=== PATIENT | female | born 1990 | race Caucasian/White ===

== ENCOUNTER 2017-05-04 09:35 | Emergency (ER) | END 2017-05-04 11:29 | disposition home or self-care (01) ==

== ENCOUNTER 2018-09-28 10:08 | Emergency (ER) | payer OTHER ==
[~2018-09-28] VITALS: Ht 157.5 cm; Wt 58.3 kg
[~2018-09-28 10:08] MED LIST: NAPR-985 PO
[2018-09-28 10:12] VITALS: Ht 157.5 cm; Wt 58.3 kg
[2018-09-28] MEDS ORDERED: SOD CHLORIDE 0.9% 1,000 ML IV STA (10:49)
[2018-09-28] MEDS ORDERED: ONDANSETRON 4 MG INJ IV STA ×2 (10:49→13:36)
[2018-09-28] MEDS ORDERED: morphine 4 MG/ML VIAL IV STA (10:49)
--- NOTE | 2018-09-28 11:01 | ERD ---
ER Documentation Chief Complaint Chief Complaint ABD PAIN RADIATING TO BACK, PT STATES SHE IS , UNK GESTATIONAL AGE HPI 28-year-old G2, P1 female in her seventh week of with an LMP in mid July with history of right-sided kidney stone presents with complaint of diffuse abdominal pain radiating to the back since this morning. In addition states she has had 2 episodes of vomiting. Denies any treatments. States that her pain is currently 10 out of 10. Vomitus is described as yellow. She denies any vaginal bleeding, dysuria, hematuria, fevers, chills, diarrhea, constipation, shortness of breath, chest pain, wheezing. ROS All systems reviewed and are negative except as per history of present illness. Medications Home Meds Active Scripts Metoclopramide* (Reglan*) 10 Mg Tablet, 10 MG PO Q6 PRN for NAUSEA AND/OR VOMITING, #10 TAB Prov:MARCIAL PAINTER 09/28/18 Discontinued Scripts Hydrocodone/Acetaminophen ([place] 5-325 Tablet) 1 Each Tablet, 1-2 TAB PO Q6H PRN for PAIN, #15 TAB Prov:MARCIAL PAINTER 09/28/18 Naproxen* (Naprosyn*) 500 Mg Tablet, 500 MG PO BID PRN for PAIN AND/OR INFLAMMATION, #15 TAB Prov:MARCIAL ALEXANDER PA-C 05/04/17 Allergies Allergies: Coded Allergies: No Known Allergy (Unverified , 09/29/18) PMhx/Soc Hx Alcohol Use: No Hx Substance Use: No Hx Tobacco Use: No FmHx Family History: No diabetes, No coronary disease, No other Physical Exam Vitals Vital Signs Date Temp Pulse Resp B/P (MAP) Pulse Ox O2 O2 Flow FiO2 Time Delivery Rate 09/28/18 98.2 70 18 108/59 99 Room Air 14:44 (75) 09/28/18 98.2 88 16 118/60 99 10:12 (79) Physical Exam Const: No acute distress Head: Atraumatic Eyes: Normal Conjunctiva ENT: Normal External Ears, Nose and Mouth. Neck: Full range of motion. No meningismus. Resp: Clear to auscultation bilaterally Cardio: Regular rate and rhythm, no murmurs Abd: Abdomen diffusely tender to palpation with guarding. Skin: No petechiae or rashes Back: No midline or flank tenderness Ext: No cyanosis, or edema Neur: Awake and alert Psych: Normal Mood and Affect Result Diagram: 09/28/18 1101 09/28/18 1101 Results 24 hrs Laboratory Tests Test 09/28/18 11:01 White Blood Count 12.9 10^3/ul Red Blood Count 4.62 10^6/ul Hemoglobin 14.1 g/dl Hematocrit 40.8 % Mean Corpuscular Volume 88.3 fl Mean Corpuscular Hemoglobin 30.5 pg Mean Corpuscular Hemoglobin Concent 34.6 g/dl Red Cell Distribution Width 12.0 % Platelet Count 323 10^3/UL Mean Platelet Volume 10.0 fl Immature Granulocytes % 0.200 % Neutrophils % 81.8 % Lymphocytes % 11.8 % Monocytes % 5.3 % Eosinophils % 0.4 % Basophils % 0.5 % Nucleated Red Blood Cells % 0.0 /100WBC Immature Granulocytes # 0.030 10^3/ul Neutrophils # 10.6 10^3/ul Lymphocytes # 1.5 10^3/ul Monocytes # 0.7 10^3/ul Eosinophils # 0.1 10^3/ul Basophils # 0.1 10^3/ul Nucleated Red Blood Cells # 0.0 10^3/ul Urine Color RACHAEL Urine Clarity TURBID Urine pH 8.0 Urine Specific [place] 1.019 Urine Ketones TRACE mg/dL Urine Nitrite NEGATIVE mg/dL Urine Bilirubin NEGATIVE mg/dL Urine Urobilinogen NEGATIVE mg/dL Urine Leukocyte Esterase NEGATIVE Charles/ul Urine Microscopic RBC 3 /HPF Urine Microscopic WBC 2 /HPF Urine Amorphous Crystals MODERATE /HPF Urine Bacteria FEW /HPF Urine Mucus FEW /HPF Urine Hemoglobin NEGATIVE mg/dL Urine Glucose NEGATIVE mg/dL Urine Total Protein NEGATIVE mg/dl Sodium Level 142 mmol/L Potassium Level 3.3 mmol/L Chloride Level 106 mmol/L Carbon Dioxide Level 24 mmol/L Anion Gap 12 Blood Urea Nitrogen 12 mg/dl Creatinine 0.54 mg/dl Est Glomerular Filtrat Rate mL/min > 60 mL/min Glucose Level 101 mg/dl Calcium Level 9.5 mg/dl Total Bilirubin 0.6 mg/dl Direct Bilirubin 0.00 mg/dl Indirect Bilirubin 0.6 mg/dl Aspartate Amino Transf (AST/SGOT) 21 IU/L Alanine Aminotransferase (ALT/SGPT) 16 IU/L Alkaline Phosphatase 90 IU/L Total Protein 7.8 g/dl Albumin 4.4 g/dl Globulin 3.40 g/dl Albumin/Globulin Ratio 1.29 Lipase 128 U/L Beta HCG, Quantitative 215489.0 mIU/ml Current Medications Medications Dose Sig/Abeba Start Time Status Last (Trade) Ordered Route PRN Stop Time Admin Dose Reason Admin Morphine 3 mg ONCE STAT 09/28/18 DC 09/28/18 Sulfate IV 10:49 11:03 (morphine) 09/28/18 10:55 Ondansetron 2 mg ONCE STAT 09/28/18 DC 09/28/18 HCl (Zofran IV 10:49 11:03 Inj) 09/28/18 10:55 Sodium 1,000 ml @ Q1H STAT 09/28/18 DC 09/28/18 Chloride 1,000 mls/hr IV 10:49 11:04 09/28/18 11:48 Morphine 2 mg ONCE STAT 09/28/18 DC 09/28/18 Sulfate IV 13:08 13:12 (morphine) 09/28/18 13:09 Ondansetron 2 mg ONCE STAT 09/28/18 DC 09/28/18 HCl (Zofran IV 13:36 13:43 Inj) 09/28/18 13:52 Morphine 2 mg ONCE STAT 09/28/18 DC 09/28/18 Sulfate IV 13:58 14:06 (morphine) 09/28/18 13:59 Procedures/MDM MDM: Ultrasound results within normal limits showing no signs of hydronephrosis, gallbladder pathology, or other abdominal pathology, however patient does have a white count and is complaining of continued abdominal pain. Patient was given IV fluids in the ER as well as pain meds and Zofran and her pain improved significantly. Patient was reevaluated before discharge and the tenderness to palpation that was found initially on exam was diminished with a negative McBurney's and Zimmer's. I have low suspicion for acute coronary syndrome, AAA, mesenteric ischemia, lower lobe pneumonia, DKA, bowel perforation, cholecystitis, choledocholithiasis, ascending cholangitis, hepatic abscess, pancreatitis, PUD, splenic rupture, diverticulitis, pyelonephritis, nephrolithiasis, appendicitis, ectopic , PID, ovarian torsion or tubo- ovarian abscess. I discussed the case with supervising physician Dr. Medina and he stated that as a matter precaution, patient should be advised to return in the morning for follow-up exam. Patient was advised to do this and agreed to do this with attending present. I also recommend the patient should return in 48 hours for repeat hCG levels to rule out heterotopic . I discussed discharge plan with the patient with production superintendent present and she did feel comfortable being discharged with strict orders for follow-up. Patient discharged with short course of [place] for pain but I advised patient that given her status she is only take it if she experiences extreme discomfort. In addition patient given metoclopramide for any nausea and vomiting as Zofran is not recommended in first trimester. Attending note: Patient seen independently with the PA. Patient's abdominal examination is currently benign. Her diagnostic work-up was appreciated. Her nonspecific abdominal pain is of uncertain etiology at this time with no evidence of kidney stone, infection and no clinical evidence of appendicitis. Patient's been given precautionary instructions regarding appendectomy precautions, and will return tomorrow for a recheck. I feel like this is the best course of action instead of further imaging especially given her . Departure Diagnosis: Primary Impression: Abdominal pain Abdominal location: generalized Qualified Codes: R10.84 - Generalized abdominal pain Condition: Stable ALFREDAMARCIAL HERNANDEZ Sep 28, 2018 11:01 LIANA ORNELAS Sep 28, 2018 13:56
[2018-09-28] MEDS ORDERED: morphine 2 MG INJ IV STA ×2 (13:08→13:58)
[2018-09-28] MEDS ORDERED: HYDR-4011 PO (14:28)
[2018-09-28] MEDS ORDERED: METO10TA92 PO (14:29)
[2018-09-28 14:44] VITALS: BP 108/59; PULSE 70; RESP 18
== END 2018-09-28 14:46 | disposition home or self-care (01) ==
LOC: FTE 10:08
DX: O26.891 Other specified pregnancy related conditions, first trimester (principal); R10.84 Generalized abdominal pain; Z3A.08 8 weeks gestation of pregnancy
CPT/HCPCS: 36415; 76700; 76801; 80053; 81001; 83690; 84702; 85025; 86900; 86901; 96361; 96374; 96375; 96376; J2270; J2405; J7030; Z7502

== ENCOUNTER 2018-09-29 08:50 | Inpatient (IN) | payer OTHER ==
[2018-09-29] VITALS (16 sets, daily range): BP systolic 116–157; BP diastolic 56–92; PULSE 69–120; RESP 18–29; Ht 160 cm; Wt 59.2 kg
[~2018-09-29] VITALS: Ht 160 cm; Wt 59.2 kg
[~2018-09-29 08:50] MED LIST changes: +HYDR-4011 PO; +METO10TA92 PO
[2018-09-29] MEDS ORDERED: SOD CHLORIDE 0.9% 1,000 ML IV STA (09:52)
[2018-09-29] MEDS ORDERED: ACETAMINOPHEN 325 MG TAB PO ONE (10:00)
--- NOTE | 2018-09-29 10:02 | ERD ---
ER Documentation Chief Complaint Chief Complaint FOR RECHECK ON ABD PAIN , 8 WEEKS PREG , FEVER LAST NIGHT HPI Is a 28-year-old female patient who presents the emergency room for recheck of abdominal pain. Patient was seen in this ED yesterday and had complaint of vomiting, right lower quadrant pain. Patient denies any vaginal bleeding, no dysuria. Patient had full work-up yesterday that did show slight leukocytosis, no nephrolithiasis, no cholecystitis. OB ultrasound shows IUP of 8 weeks 5 days with heart rate of 159 bpm. Patient was discharged home with instructions to follow-up this morning. Patient states last night she vomited x2, at 3 AM mounted fever of 100.4. Returns this morning with feeling of malaise, right lower quadrant rebound pain. Case discussed with Dr. Kinney who agrees MRI to rule out appendicitis is appropriate at this time. Discussed need for MRI with patient and who are agreeable to this exam. ROS All systems reviewed and are negative except as per history of present illness. Medications Home Meds Active Scripts Metoclopramide* (Reglan*) 10 Mg Tablet, 10 MG PO Q6 PRN for NAUSEA AND/OR VOMITING, #10 TAB Prov:MARCIAL PAINTER 09/28/18 Hydrocodone/Acetaminophen ([place] 5-325 Tablet) 1 Each Tablet, 1-2 TAB PO Q6H PRN for PAIN, #15 TAB Prov:MARCIAL PAINTER 09/28/18 Naproxen* (Naprosyn*) 500 Mg Tablet, 500 MG PO BID PRN for PAIN AND/OR INFLAMMATION, #15 TAB Prov:MARCIAL ALEXANDER PA-C 05/04/17 Allergies Allergies: Coded Allergies: No Known Allergy (Unverified , 05/04/17) PMhx/Soc Medical and Surgical Hx: pt denies Medical Hx Hx Alcohol Use: No Hx Substance Use: No Hx Tobacco Use: No FmHx Family History: No diabetes, No coronary disease, No other Physical Exam Vitals Vital Signs Date Temp Pulse Resp B/P (MAP) Pulse Ox O2 O2 Flow FiO2 Time Delivery Rate 09/29/18 98.6 92 18 123/57 98 08:54 (79) Physical Exam Const: No acute distress Head: Atraumatic Eyes: Normal Conjunctiva ENT: Normal External Ears, Nose and Mouth. Neck: Full range of motion. No meningismus. Resp: Clear to auscultation bilaterally Cardio: Regular rate and rhythm, no murmurs Abd: Soft, tender at lower left pelvis, +sharp rebound tenderness @ RLQ, non distended. Normal bowel sounds Skin: No petechiae or rashes Back: No midline or flank tenderness Ext: No cyanosis, or edema Neur: Awake and alert Psych: Normal Mood and Affect Result Diagram: 09/29/18 1019 09/29/18 1019 Results 24 hrs Laboratory Tests Test 09/29/18 10:19 White Blood Count 9.3 10^3/ul Red Blood Count 4.38 10^6/ul Hemoglobin 13.2 g/dl Hematocrit 38.8 % Mean Corpuscular Volume 88.6 fl Mean Corpuscular Hemoglobin 30.1 pg Mean Corpuscular Hemoglobin Concent 34.0 g/dl Red Cell Distribution Width 11.9 % Platelet Count 252 10^3/UL Mean Platelet Volume 10.2 fl Immature Granulocytes % 0.300 % Neutrophils % 89.4 % Lymphocytes % 6.3 % Monocytes % 3.6 % Eosinophils % 0.0 % Basophils % 0.4 % Nucleated Red Blood Cells % 0.0 /100WBC Immature Granulocytes # 0.030 10^3/ul Neutrophils # 8.3 10^3/ul Lymphocytes # 0.6 10^3/ul Monocytes # 0.3 10^3/ul Eosinophils # 0.0 10^3/ul Basophils # 0.0 10^3/ul Nucleated Red Blood Cells # 0.0 10^3/ul Prothrombin Time 13.6 Sec Prothrombin Time Ratio 1.1 INR International Normalized Ratio 1.03 Activated Partial Thromboplast Time 30.2 Sec Sodium Level 138 mmol/L Potassium Level 3.7 mmol/L Chloride Level 103 mmol/L Carbon Dioxide Level 23 mmol/L Anion Gap 12 Blood Urea Nitrogen 7 mg/dl Creatinine 0.46 mg/dl Est Glomerular Filtrat Rate mL/min > 60 mL/min Glucose Level 81 mg/dl Calcium Level 9.4 mg/dl Total Bilirubin 0.8 mg/dl Direct Bilirubin 0.00 mg/dl Indirect Bilirubin 0.8 mg/dl Aspartate Amino Transf (AST/SGOT) 22 IU/L Alanine Aminotransferase (ALT/SGPT) 23 IU/L Alkaline Phosphatase 73 IU/L Total Protein 7.5 g/dl Albumin 4.2 g/dl Globulin 3.30 g/dl Albumin/Globulin Ratio 1.27 Current Medications Medications Dose Sig/Abeba Start Time Status Last (Trade) Ordered Route PRN Stop Time Admin Dose Reason Admin Sodium 1,000 ml @ Q1H STAT 09/29/18 DC 09/29/18 Chloride 1,000 mls/hr IV 09:52 10:11 09/29/18 10:51 650 mg ONCE ONCE 09/29/18 DC 09/29/18 Acetaminophen PO 10:00 10:11 (Tylenol 09/29/18 10:01 Tab) Piperacillin 100 ml @ ONCE ONCE 09/29/18 Sod/ 200 mls/hr IVPB 13:30 Tazobactam 09/29/18 13:59 Sod Procedures/MDM PROCEDURES/MDM DIAGNOSTIC IMAGING: Read by radiologist. MRI IMPRESSION: 1. Positive acute appendicitis. 2. Mild layering pelvic free fluid. 3. Positive gravid uterus. PROCEDURES: none LAB INTERPRETATION: Leukocytosis slightly improved since yesterday, hypokalemia has improved, no anemia -Medications: Normal saline, Tylenol Patient tolerated medication well with no adverse reactions. Patient reported improvement in pain. -Consultation: Dr. Kinney MDM: Radiologist Dr. Sloan phoned to notify of positive appendectomy on MRI. Dr. Kinney notified of exam results who took over case for admission. Spoke with patient and about positive results, inform them of plan for admission and OB and surgical consult. Patient and verbalized understanding for plan of care. Patient states she is currently comfortable, minimal pain, no nausea at this time. DISPOSITION and PLAN: Transfer of care to Dr. Kinney Departure Diagnosis: Primary Impression: Acute appendicitis affecting CORA NICOLE NP Sep 29, 2018 10:02
--- NOTE | 2018-09-29 13:14 | QN ---
Documentation Comment Consultation note Subjective: This patient was evaluated by myself in conjunction with the PA. Please see her note for further detail. Briefly, this is a 28-year-old female 8 weeks gestational age who is presenting with persistent right lower quadrant abdominal pain. The patient was evaluated yesterday and ultimately discharged in stable condition. She was told to return to the emergency department within 8 hours for worsening pain. The patient presents today with persistent worsening pain. Family history: As indicated on the initial history and physical of this ER visit Objective: Vital signs reviewed Const: No apparent distress, well-developed, well-nourished Head: Normocephalic, Atraumatic Eyes: Normal Conjunctiva. ENT: Normal External Ears, Nose and Mouth. Neck: No meningismus. Resp: Symmetric chest wall diana, no audible wheezes Cardio: Regular rate and rhythm Abd: Non distended. Lower abdominal tenderness. Skin: No petechiae or rashes Back: Deferred Ext: No cyanosis, or edema Neur: Awake and alert, oriented 4. No facial droop. Normal strength and sensation. Psych: Normal mood and affect MDM The patient's presentation warrants further investigation. Previous medical records, if available, were reviewed. LABS The patient's laboratory testing was obtained and reviewed. No emergent treatment was required unless described below. CBC: No E/o systemic infection or severe anemia or thrombocytopenia Chemistry: No E/o severe acidosis or alkalosis or renal failure or liver disease or diabetic ketoacidosis PT/INR: No E/o significant coagulopathy IMAGING Imaging and Radiology interpretation reviewed. US Pelvis FINDINGS: Uterus is anteverted. Noted is a single intrauterine gestation with pole with positive heart beat measuring 176 beats per minute. The gestational sac measures 3.3 cm corresponding to a gestational age 8 weeks 3 days by ultrasound criteria. The crown-rump length measures 2.5 cm corresponding to a gestational age 9 weeks 2 days. No subchorionic hemorrhage is seen. The ovaries are not visualized. There is no free fluid in the pelvis. IMPRESSION: Single viable intrauterine gestation of 9 weeks 2 days by ultrasound criteria. Electronically viewed and signed by .Gustavo Zimmer MD, MD on 09/29/2018 14:48 CT Abd/Pelvis FINDINGS: Lower thorax: Normal. Liver: Normal. Patent portal vein. Biliary: Normal gallbladder. No biliary dilatation. Pancreas: Normal. Spleen: Normal. Adrenal Glands: Normal. Genitourinary: Normal. Gastrointestinal: Thickened inflamed dilated appendix consistent with acute appendicitis. No focal fluid collection or abscess is identified. Lymph nodes: Normal. Vascular: Normal. Peritoneum/mesentery: Mild layering pelvic free fluid. Reproductive organs: Gravid uterus with identifiable fetus. Musculoskeletal: Normal. IMPRESSION: 1. Positive acute appendicitis. 2. Mild layering pelvic free fluid. 3. Positive gravid uterus. Electronically viewed and signed by .Nikita Pete MD, MD on 09/29/2018 13:02 TREATMENT/DISPOSITION The patient presents for acute appendicitis. The patient is at 8 weeks gestational age. OB and general surgery were consulted. Dr. Abraham, the on-call general surgeon, was consulted on the case. He intends to take the patient to the OR. The patient last ate cereal at 7 AM this morning. The patient was made n.p.o. Dr. Waldrop, the on-call adaptive physical education specialist, was also consulted on the case. The patient was given Zosyn in the emergency department. Please see PA note for further detail. ADMISSION At this time, I feel that the patient requires admission for further evaluation and management. The patient has [place] insurance, but I was not able to get a hold of Dr. Jameson, who is on-call for that insurance group. We made several attempts to reach out to him. I will admit the patient to panel. Disclaimer: Inadvertent spelling and grammatical errors are likely due to EHR/dictation software use and do not reflect on the overall quality of patient care. Note that the electronic time recorded on this note does not necessarily reflect the actual time of the patient encounter. ALISHA BENDER MD Sep 29, 2018 13:14
[2018-09-29] MEDS ORDERED: PIPER-TAZO 3.375 GM IV (PMX) 100 ML IVPB ONE (13:30)
[2018-09-29] MEDS ORDERED: LIDOCAINE 1%/EPI 30 ML INJ ONE (13:45)
[2018-09-29] MEDS ORDERED: BUPIVACAINE 0.25% (MPF) 30 ML INJ ONE (13:46)
--- NOTE | 2018-09-29 14:09 | CONS ---
Assessment/Plan Assessment/Plan Assessment/Plan (Daily) Acute appendicitis. Discussed case with laborist. Discussed possibility of treating with IV antib iotics. However, the risk of potential rupture is much worse to fetus and possibility of demise. Therefore, recommend proceeding with laparoscopic appendectomy. I discussed this with the patient in detail. Patient elects to proceed. Therefore, we discussed laparoscopic, possible open, appendectomy. All benefits, risks, alternatives including demise were discussed in detail with the patient. All questions answered. The patient elects to proceed. This was all documented with the help of a crnp. Consultation Date/Type/Reason Admit Date/Time Date/Time of Note DATE: 09/29/18 TIME: 14:04 Hx of Present Illness Patient is a 28-year-old female 8 weeks , who presented to the ER once again today for recheck of her abdominal pain. Patient was seen in the emergency room yesterday due to emesis and right upper quadrant abdominal pain. She was discharged home at that time. However, she was told to follow-up this morning. She had nausea and emesis overnight. She had a fever to 100.4. Her pain is worse in the right lower quadrant. MRI was performed which was consistent with acute appendicitis. Who presents the emergency room for recheck of abdominal pain. Patient was seen in this ED yesterday and had complaint of vomiting, right lower quadrant pain. Patient denies any vaginal bleeding, no dysuria. Patient had full work- up yesterday that did show slight leukocytosis, no nephrolithiasis, no cholecystitis. OB ultrasound shows IUP of 8 weeks 5 days with heart rate of 159 bpm. Patient was discharged home with instructions to follow-up this morning. Patient states last night she vomited x2, at 3 AM mounted fever of 100.4. Returns this morning with feeling of malaise, right lower quadrant rebound pain. Case discussed with Dr. Kinney who agrees MRI to rule out appendicitis is appropriate at this time. Discussed need for MRI with patient and who are agreeable to this exam. 14 point review of systems was performed. Pertinent negatives and positives per HPI. Past Medical History Medical History: no pertinent history Home Meds Active Scripts Metoclopramide* (Reglan*) 10 Mg Tablet, 10 MG PO Q6 PRN for NAUSEA AND/OR VOMITING, #10 TAB Prov:MARCIAL PAINTER 09/28/18 Discontinued Scripts Hydrocodone/Acetaminophen ([place] 5-325 Tablet) 1 Each Tablet, 1-2 TAB PO Q6H PRN for PAIN, #15 TAB Prov:MARCIAL PAINTER 09/28/18 Naproxen* (Naprosyn*) 500 Mg Tablet, 500 MG PO BID PRN for PAIN AND/OR INFLAMMATION, #15 TAB Prov:BENJAMINMARCIAL Erika HERNANDEZ 05/04/17 Allergies: Coded Allergies: No Known Allergy (Unverified , 09/29/18) Past Surgical History Past Surgical Hx: no surgical history Family History Significant Family History: no pertinent family hx Social History Alcohol Use: rarely Smoking Status: Never smoker Exam/Review of Systems Exam Vitals Vital Signs Date Temp Pulse Resp B/P (MAP) Pulse Ox O2 O2 Flow FiO2 Time Delivery Rate 09/29/18 99.1 82 18 129/75 100 Room Air 14:02 (93) Constitutional: alert, oriented, well developed Head: normocephalic, atraumatic ENMT: nl external ears & nose, nl lips & teeth Neck: supple, non-tender Respiratory: clear to auscultation, normal air movement Cardiovascular: regular rate and rhythm Gastrointestinal: soft, tender (to RLQ) Extremities: normal pulses Neurological: [employer]ES II-XII intact, nl mental status Skin: nl turgor, rash or lesions Results Result Diagram: 09/29/18 1019 09/29/18 1019 Results 24hrs Laboratory Tests Test 09/29/18 10:19 White Blood Count 9.3 # Red Blood Count 4.38 Hemoglobin 13.2 Hematocrit 38.8 Mean Corpuscular Volume 88.6 Mean Corpuscular Hemoglobin 30.1 Mean Corpuscular Hemoglobin Concent 34.0 Red Cell Distribution Width 11.9 Platelet Count 252 # Mean Platelet Volume 10.2 Immature Granulocytes % 0.300 Neutrophils % 89.4 H Lymphocytes % 6.3 L Monocytes % 3.6 Eosinophils % 0.0 Basophils % 0.4 Nucleated Red Blood Cells % 0.0 Immature Granulocytes # 0.030 Neutrophils # 8.3 H Lymphocytes # 0.6 L Monocytes # 0.3 Eosinophils # 0.0 Basophils # 0.0 Nucleated Red Blood Cells # 0.0 Prothrombin Time 13.6 Prothrombin Time Ratio 1.1 INR International Normalized Ratio 1.03 Activated Partial Thromboplast Time 30.2 Sodium Level 138 Potassium Level 3.7 Chloride Level 103 Carbon Dioxide Level 23 Anion Gap 12 Blood Urea Nitrogen 7 Creatinine 0.46 Est Glomerular Filtrat Rate mL/min > 60 Glucose Level 81 Calcium Level 9.4 Total Bilirubin 0.8 Direct Bilirubin 0.00 Indirect Bilirubin 0.8 Aspartate Amino Transf (AST/SGOT) 22 Alanine Aminotransferase (ALT/SGPT) 23 Alkaline Phosphatase 73 Total Protein 7.5 Albumin 4.2 Globulin 3.30 H Albumin/Globulin Ratio 1.27 Imaging Imaging Patient: MICHELLE NIX : 1990 Age: 28 Sex: F MR #: [id number] DOS: 09/29/18 0952 Ordering MD: CORA NICOLE NP Location: [facility] Room/Bed: PROCEDURE: MR Abdomen and pelvis without contrast. CLINICAL INDICATION: Abdominal pelvic pain. RLQ pain. Positive . TECHNIQUE: MRI abdomen and pelvis without contrast. COMPARISON: US PELVIS 09/28/2018; US 09/28/2018 FINDINGS: Lower thorax: Normal. Liver: Normal. Patent portal vein. Biliary: Normal gallbladder. No biliary dilatation. Pancreas: Normal. Spleen: Normal. Adrenal Glands: Normal. Genitourinary: Normal. Gastrointestinal: Thickened inflamed dilated appendix consistent with acute appendicitis. No focal fluid collection or abscess is identified. Lymph nodes: Normal. Vascular: Normal. Peritoneum/mesentery: Mild layering pelvic free fluid. Reproductive organs: Gravid uterus with identifiable fetus. Musculoskeletal: Normal. IMPRESSION: 1. Positive acute appendicitis. 2. Mild layering pelvic free fluid. 3. Positive gravid uterus. RPTAT: HMJB .Nikita Pete MD, MD Date Time Electronically viewed and signed by .Nikita Pete MD, on 09/29/2018 13:02 .B/ CC: CORA NICOLE NP [id number] MEKA BAEZA MD Sep 29, 2018 14:09
--- NOTE | 2018-09-29 14:49 | OPR ---
Date/Time of Note Date/Time of Note DATE: 09/29/18 TIME: 14:47 Operative Report Preoperative Diagnosis Acute appendicitis Postoperative Diagnosis Same Operation/Procedure Performed Laparoscopic appendectomy Surgeon see signature line Protector Plate Attacher None Anesthesia Type: general Anesthesiologist: ОЛЬГА VILLALPANDO Estimated Blood Loss: minimal Transfusion none Specimen Appendix Grafts/Implants none Tubes/Drains None Complications none Pt Condition Post Procedure: stable Disposition: PACU Indications The patient is a 28-year-old female with acute appendicitis. I discussed laparoscopic, possible open, appendectomy with the patient. All benefits, risks, alternatives discussed in detail, specifically bleeding, infection, and demise. All questions were answered. The patient elected to proceed. Procedure Description The patient was brought to operative room placed supine on the table. After preop antibiotics and SCDs were applied, the patient was intubated. The abdomen was cleaned, prepped, draped in usual sterile fashion. All incisions were infiltrated with half percent lidocaine with epinephrine. A 5 mm incision was made in the umbilicus. Using a 5 by laparoscope obtained trocar, the abdomen was was entered and insufflated to 15 mmHg CO2. The following trochars in place and direct vision: A right lower quadrant 5 mm left lower quadrant 12 mm I identified my appendix. It was consistent with acute appendicitis. The the base was not involved. I made a rent through the mesentery at the base of the appendix. I then divided the base of the appendix to the cecum with a 35 mm Endo linear cutter white load. . I was able to elevate the appendix. The mesentery was then divided with a 35 mm Endo linear cutter white load. The appendix was placed in Endo Catch bag removed and the 12 mm trocar site. I irrigated out the right lower quadrant and pelvis until effluent was clear. I visualized the staple lines. 5mm clips were applied to obtain hemostasis. The uterus was not manipulated at any time during the case. I desufflated the abdomen and removed all trochars. The fascia of the 12 mm trocar site was closed with 0 Vicryl. Skin incisions were closed with 4-0 Monocryl, Mastisol, and Steri-Strips marked muscle Steri-Strips. The patient tolerated the procedure well, was extubated ER, and transferred to the recovery room in stable condition. MEKA BAEZA MD Sep 29, 2018 14:49
--- NOTE | 2018-09-29 14:57 | PREAC ---
Date/Time of Note Date/Time of Note DATE: 09/29/18 TIME: 14:55 Anesthesia Eval and Record Evaluation Time Pre-Procedure Interview DATE: 09/29/18 TIME: 14:55 Age 28 Sex female NPO: 8 hrs Preoperative diagnosis appendicitis Planned procedure lap appy Past Medical History Past Medical History: Includes : :, Gestational age: (9) Surgery & Anesthesia Issues No known issue Meds Anticoagulation: No Beta Anabela within 24 hr: No Reason Beta Anabela not given: Pt. not on B-Anabela Active Scripts Metoclopramide* (Reglan*) 10 Mg Tablet, 10 MG PO Q6 PRN for NAUSEA AND/OR VOMITING, #10 TAB Prov:MARCIAL PAINTER 09/28/18 Discontinued Scripts Hydrocodone/Acetaminophen ([place] 5-325 Tablet) 1 Each Tablet, 1-2 TAB PO Q6H PRN for PAIN, #15 TAB Prov:MARCIAL PAINTER 09/28/18 Naproxen* (Naprosyn*) 500 Mg Tablet, 500 MG PO BID PRN for PAIN AND/OR INFLAMMATION, #15 TAB Prov:MARCIAL ALEXANDER PA-C 05/04/17 Current Medications Piperacillin Sod/ Tazobactam Sod 100 ml @ 200 mls/hr Q6 IVPB ; Start 09/29/18 at 18:00; Status UNV Ondansetron HCl (Zofran Inj) 4 mg Q6H PRN IV NAUSEA AND/OR VOMITING; Start 09/29/18 at 15:00 Acetaminophen (Tylenol Tab) 650 mg Q6H PRN PO PAIN LEVEL 1-3 OR FEVER; Start 09/29/18 at 15:00 Morphine Sulfate (morphine) 2 mg Q2H PRN IV PAIN LEVEL 8-10; Start 09/29/18 at 15:00 Acetaminophen/ Hydrocodone Bitart ([place] (5/325)) 1 tab Q6H PRN PO PAIN LEVEL 4-7; Start 09/29/18 at 15:00 Potassium Chloride/Dextrose/ Sod Cl 1,000 ml @ 100 mls/hr Q10H IV ; Start 09/29/18 at 14:49; Status UNV Meds reviewed: Yes Allergies Coded Allergies: No Known Allergy (Unverified , 09/29/18) Allergies Reviewed: Yes Labs/Studies Labs Reviewed: Reviewed by anesthesiologist Result Diagram: 09/29/18 1019 09/29/18 1019 Laboratory Tests 09/29/18 10:19 test: Positive Pre-procedure Exam Last vitals Vital Signs Date Temp Pulse Resp B/P (MAP) Pulse Ox O2 O2 Flow FiO2 Time Delivery Rate 09/29/18 99.1 82 18 129/75 100 Room Air 14:02 (93) Airway: Adequate mouth opening, Adequate thyromental dist Mallampati: Mallampati II Teeth: Normal Lung: Normal Heart: Normal ASA Physical Status ASA physical status: 2 Emergency: None Planned Anesthetic General/MAC: ETT Nerve block: TAP (bilateral) Pre-operative Attestations Prior to commencing anesthesia and surgery, the patient was re-evaluated, there was verification of: *The patient's identity *The results of appropriate recent lab work and preoperative vital signs *The above evaluation not changing prior to induction *Anesthetic plan, risk benefits, alternative and complications discussed with patient/family; questions answered; patient/family understands, accepts and wishes to proceed. ОЛЬГА VILLALPANDO Sep 29, 2018 14:57
[2018-09-29] MEDS ORDERED: ACETAMINOPHEN 325 MG TAB PO PRN ×2 (15:00→16:00)
[2018-09-29] MEDS ORDERED: FENTAnyl 50 MCG/ML VIAL IV PRN ×2 (15:00)
[2018-09-29] MEDS ORDERED: DIPHENHYDRAMINE 50 MG INJ IV PRN (15:00)
[2018-09-29] MEDS ORDERED: morphine 2 MG INJ IV PRN (15:00)
[2018-09-29] MEDS ORDERED: HYDROCODONE/APAP (5/325) TAB PO PRN (15:00)
[2018-09-29] MEDS ORDERED: HYDROmorphONE 1 MG/5 ML IV SYRINGE IV PRN ×3 (15:00)
[2018-09-29] MEDS ORDERED: ALBUTEROL 0.083% (NEB) 2.5 MG/3 ML AMP HHN PRN (15:00)
[2018-09-29] MEDS ORDERED: METOCLOPRAMIDE 10 MG INJ IV PRN (15:00)
[2018-09-29] MEDS ORDERED: ONDANSETRON 4 MG INJ IV PRN ×4 (15:00→19:00)
[2018-09-29] MEDS ORDERED: FENTAnyl 50 MCG/ML VIAL ONE (15:06)
[2018-09-29] MEDS ORDERED: LIDOCAINE 100 MG SYRINGE ONE (15:29)
[2018-09-29] MEDS ORDERED: SUCCINYLCHOLINE CHLORIDE 100 MG/5 ML SYG IV ONE (15:29)
[2018-09-29] MEDS ORDERED: ROCURONIUM 50 MG INJ ONE (15:29)
[2018-09-29] MEDS ORDERED: PROPOFOL 20 ML ONE (15:29)
[2018-09-29] MEDS ORDERED: SUGAMMADEX SODIUM 200 MG/2 ML VIAL IV ONE (15:31)
[2018-09-29] MEDS: D5-NS + KCL 20 MEQ 1,000 ML IV SCH (18:05)
[2018-09-29] MEDS: PIPER-TAZO 3.375 GM IV (PMX) 100 ML IVPB SCH ×2 (18:06→23:34)
[2018-09-29] MEDS ORDERED: metroNIDAZOLE 500 MG/NS (PMX) 100 ML IVPB SCH (19:00)
[2018-09-29] MEDS ORDERED: METOCLOPRAMIDE 10 MG TAB PO PRN (19:00)
[2018-09-29] MEDS ORDERED: DIPHENHYDRAMINE 25 MG CAP PO PRN (19:00)
[2018-09-29] MEDS ORDERED: CEFAZOLIN 2 GM/50 ML (PMX) 50 ML IVPB SCH (20:00)
--- NOTE | 2018-09-29 20:11 | PAC ---
Date/Time of Note Date/Time of Note DATE: 09/29/18 TIME: 20:11 Post-Anesthesia Notes Post-Anesthesia Note Last documented vital signs Vital Signs Date Temp Pulse Resp B/P (MAP) Pulse Ox O2 O2 Flow FiO2 Time Delivery Rate 09/29/18 96 18 128/78 99 Room Air 18:45 (95) 09/29/18 99.1 18:10 09/29/18 6.0 16:28 Activity: WNL Respiratory function: WNL Cardiovascular function: WNL Mental status: Baseline Pain reasonably controlled: Yes Hydration appropriate: Yes Nausea/Vomiting absent: Yes ОЛЬГА VILLALPANDO Sep 29, 2018 20:11
[2018-09-29] MEDS: ACETAMINOPHEN 325 MG TAB PO PRN (20:17)
[2018-09-29] MEDS: FAMOTIDINE 20 MG TAB PO SCH (21:00)
[2018-09-30 00:05] VITALS: BP 107/58; PULSE 78; RESP 18
[2018-09-30] MEDS: D5-NS + KCL 20 MEQ 1,000 ML IV SCH ×2 (02:48→11:09)
[2018-09-30 04:00] VITALS: BP 110/55; PULSE 77; RESP 17
[2018-09-30] MEDS: PIPER-TAZO 3.375 GM IV (PMX) 100 ML IVPB SCH ×2 (06:29→12:05)
[2018-09-30 07:49] VITALS: BP 119/79; PULSE 77; RESP 18
[2018-09-30] MEDS: FAMOTIDINE 20 MG TAB PO SCH (08:21)
--- NOTE | 2018-09-30 08:41 | HP ---
Date/Time of Note Date/Time of Note DATE: 09/30/18 TIME: 08:34 Assessment/Plan VTE Prophylaxis Risk score (from Ns)>0 risk: 4 SCD applied (from Ns): Yes Pharmacological prophylaxis: NA/contraindicated Pharm contraindication: surgical contra Lines/Catheters IV Catheter Type (from Nrsg): Peripheral IV Urinary Cath still in place: No Assessment/Plan Assessment/Plan 28yo woman who is gravid about 9 weeks, who is now post-op day 1 s/p laparoscopic appendectomy. Doing well, with only mild discomfort at the operative site and mild nausea. Some subjective dyspnea, but no chest or back pain. Using incentive spirometer. She has a history of pre-eclampsia during her previous , but BP is well-controlled now. * Med/surg inpatient monitoring today * Continued IV fluids * Continue Zosyn 3.375g IV q8h * OB ultrasound check this morning (abd/vag) per the on-call scrap carrier -- who is aware of the case * Full-code * SCDs for DVT prevention * Morphine for pain control * Famotidine for gi protection * Disposition: possibly home today, if check is normal and she is able to eat J. Kwame Jameson MD PhD [facility] Internal Medicine [phone] Result Diagram: 09/30/189 09/30/18428 Results 24hrs Laboratory Tests Test 09/29/18 10:19 09/30/18 04:29 White Blood Count 9.3 # 7.1 # Red Blood Count 4.38 3.79 L Hemoglobin 13.2 11.4 L Hematocrit 38.8 33.4 L Mean Corpuscular Volume 88.6 88.1 Mean Corpuscular Hemoglobin 30.1 30.1 Mean Corpuscular Hemoglobin Concent 34.0 34.1 Red Cell Distribution Width 11.9 12.3 Platelet Count 252 # 219 Mean Platelet Volume 10.2 10.8 H Immature Granulocytes % 0.300 0.400 Neutrophils % 89.4 H 82.4 H Lymphocytes % 6.3 L 10.9 L Monocytes % 3.6 5.6 Eosinophils % 0.0 0.1 Basophils % 0.4 0.6 Nucleated Red Blood Cells % 0.0 0.0 Immature Granulocytes # 0.030 0.030 Neutrophils # 8.3 H 5.8 Lymphocytes # 0.6 L 0.8 Monocytes # 0.3 0.4 Eosinophils # 0.0 0.0 Basophils # 0.0 0.0 Nucleated Red Blood Cells # 0.0 0.0 Prothrombin Time 13.6 Prothrombin Time Ratio 1.1 INR International Normalized Ratio 1.03 Activated Partial Thromboplast Time 30.2 Sodium Level 138 139 Potassium Level 3.7 3.5 Chloride Level 103 107 Carbon Dioxide Level 23 23 Anion Gap 12 9 Blood Urea Nitrogen 7 4 L Creatinine 0.46 0.44 Est Glomerular Filtrat Rate mL/min > 60 > 60 Glucose Level 81 103 Calcium Level 9.4 7.9 L Total Bilirubin 0.8 Direct Bilirubin 0.00 Indirect Bilirubin 0.8 Aspartate Amino Transf (AST/SGOT) 22 Alanine Aminotransferase (ALT/SGPT) 23 Alkaline Phosphatase 73 Total Protein 7.5 Albumin 4.2 Globulin 3.30 H Albumin/Globulin Ratio 1.27 HPI/ROS Admit Date/Time Admit Date/Time Hx of Present Illness Ms. Mathis is a 28-year-old woman who is 9-weeks , who presented yesterday in the [facility] ER with abdominal pain. I met with her in Rm [id number] at [facility], with her mother at her bedside. We spoke in [place]ian. 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 The day before, she was seen here in the ED with emesis and right lower quadrant pain, but no vaginal bleeding, urethritis, or dysuria. CBC then showed mild leukocytosis only. OB ultrasound showed an intrauterine estimated at 8 weeks 5 days with heart rate of 159 bpm. She was discharged home and urged to follow-up yesterday. She had two episodes of emesis overnight and became febrile with lowgrade temp. She underwent MRI that showed appendicitis, and graciously agreed to take her to surgery last night. The patient received Zosyn IV in the ER. I reviewed the case with him, and he indicated that the operation went well, with no evidence for perforation. She has a 5-year-old daughter, and the previous was complicated with pre-eclampsia. She had no other health issues, and was taking only a pre- vitamin before she got sick. ROS Mild dyspnea and sternal area chest discomfort this morning. Mild nausea, with decreased appetite. No leg pain or swelling. Mild temp overnight, treated with Tylenol. PMH/Family/Social Past Medical History Medical History: no pertinent history Medications Current Medications Piperacillin Sod/ Tazobactam Sod 100 ml @ 200 mls/hr Q6 IVPB Last administered on 09/30/18at 06:29; Admin Dose 200 MLS/HR; Start 09/29/18 at 19:00 Morphine Sulfate (morphine) 2 mg Q2H PRN IV PAIN LEVEL 8-10 Last administered on 09/30/18at 02:48; Admin Dose 2 MG; Start 09/29/18 at 15:00 Acetaminophen/ Hydrocodone Bitart ([place] (5/325)) 1 tab Q6H PRN PO PAIN LEVEL 4-7; Start 09/29/18 at 15:00 Potassium Chloride/Dextrose/ Sod Cl 1,000 ml @ 100 mls/hr Q10H IV Last administered on 09/30/18at 02:48; Admin Dose 100 MLS/HR; Start 09/29/18 at 15:30 Metoclopramide HCl (Reglan) 10 mg Q6H PRN PO NAUSEA AND/OR VOMITING; Start 09/29/18 at 19:00 Acetaminophen (Tylenol Tab) 650 mg Q6H PRN PO MILD PAIN(1-3)OR ELEVATED TEMP Last administered on 09/29/18at 20:17; Admin Dose 650 MG; Start 09/29/18 at 19:00 Diphenhydramine HCl (Benadryl) 25 mg Q6H PRN PO ITCHING; Start 09/29/18 at 19:00 Ondansetron HCl (Zofran Inj) 4 mg Q6H PRN IV NAUSEA AND/OR VOMITING Last administered on 09/30/18at 06:25; Admin Dose 4 MG; Start 09/29/18 at 19:00 Famotidine (Pepcid) 20 mg BID PO ; Start 09/29/18 at 21:00 Coded Allergies: No Known Allergy (Unverified , 09/29/18) Past Surgical History Past Surgical Hx: no surgical history Family History Significant Family History: no pertinent family hx Social History Alcohol Use: rarely Smoking Status: Never smoker Exam/Review of Systems Vital Signs Vitals Vital Signs Date Temp Pulse Resp B/P (MAP) Pulse Ox O2 O2 Flow FiO2 Time Delivery Rate 09/30/18 99.0 77 18 119/79 100 07:49 (92) 09/30/18 Room Air 04:00 09/29/18 6.0 16:28 Intake and Output 09/29/18 09/29/18 09/30/18 1515:00 23:00 07:00 IntakeIntake Total 1000 ml 1520 ml 1540 ml OutputOutput Total 711 ml 602 ml BalanceBalance 1000 ml 809 ml 938 ml Exam Constitutional: alert, oriented, well developed Psych: no complaints, nl mood/affect Head: normocephalic, atraumatic Eyes: nl conjunctiva, EOMI, PERRL ENMT: mucosa pink and moist Neck: supple, non-tender; No jvd, No bruits, No masses, No thyromegaly, No nuchal rigidity Respiratory: clear to auscultation, normal air movement; No congested cough, No crackles/rales, No diminished breath sounds, No intercostal retraction, No labored breathing, No respirations, No tactile fremitus, No wheezing Cardiovascular: regular rate and rhythm, nl pulses; No bruits, No diastolic murmur, No edema, No gallop, No irregular rhythm, No jugular venous distention (JVD), No murmurs/extra sounds, No rub, No systolic murmur Gastrointestinal: soft, nl liver, spleen, non-tender, surgical scars Genitourinary - Male: other Genitourinary - Female: No CVA tenderness Musculoskeletal: nl extremities to inspection Extremities: normal pulses; No calf tenderness, No cyanosis, No clubbing, No edema, No pitting pedal edema, No palpable cord, No tenderness Neurological: PRINCIPAL TRAINER II-XII intact, nl mental status, nl speech, nl strength Skin: nl turgor; No rash or lesions, No diaphoresis, No ecchymosis, No laceration Lymph: nl lymph nodes LOUIE JAMESON M.D. Sep 30, 2018 08:41
[2018-09-30] MEDS: ACETAMINOPHEN 325 MG TAB PO PRN (09:25)
--- NOTE | 2018-09-30 09:40 | PN ---
Date/Time of Note Date/Time of Note DATE: 09/30/18 TIME: 09:39 Assessment/Plan Lines/Catheters IV Catheter Type (from Nrsg): Peripheral IV John in Place (from Nrsg): No Assessment/Plan Assessment/Plan Postop day #1 status post lap appendectomy Positive heart tones this morning. OK to discharge today. Subjective 24 Hr Interval Summary Constitutional: improved, other (Some pain to left lower quadrant incision) Feeding: advancing diet Pain Control: mild Exam/Review of Systems Vital Signs Vitals Vital Signs Date Temp Pulse Resp B/P (MAP) Pulse Ox O2 O2 Flow FiO2 Time Delivery Rate 09/30/18 99.0 77 18 119/79 100 07:49 (92) 09/30/18 Room Air 04:00 09/29/18 6.0 16:28 Intake and Output 09/29/18 09/29/18 09/30/18 1515:00 23:00 07:00 IntakeIntake Total 1000 ml 1520 ml 1540 ml OutputOutput Total 711 ml 602 ml BalanceBalance 1000 ml 809 ml 938 ml Exam Constitutional: alert, oriented Respiratory: clear to auscultation Cardiovascular: regular rate and rhythm Gastrointestinal: soft, other (Nondistended, some slight gissel-incisional tenderness) Results Result Diagram: 09/30/18 0429 09/30/18 0429 MEKA BAEZA MD Sep 30, 2018 09:40
[2018-09-30 14:52] VITALS: BP 118/71; PULSE 69; RESP 16
[2018-09-30] MEDS ORDERED: HYDROCODONE/APAP (5/325) TAB PO PRN (15:30)
--- NOTE | 2018-09-30 15:30 | PDOCDIS ---
Discharge Instructions DIAGNOSIS Discharge Diagnosis Post-appendectomy CONDITION [id number] Patient Condition: [id number] Good HOME CARE INSTRUCTIONS: [id number] Diet Instructions: [id number] Regular ACTIVITY: [id number] Activity Restrictions: [id number] Slowly Increase Activity Rest between Activity Avoid heavy lifting Avoid Heavy Housework [id number] Bathing Restrictions: [id number] Shower [id number] Activity Restrictions [id number] Note given excusing her from Comment: work for the next three weeks FOLLOW UP/APPOINTMENTS Follow-up Plan Obstetrics follow-up in the next week SCHOOL/WORK RELEASE May return to School/Work on: Oct 22, 2018 (10/22/18) LOUIE PINEDO M.D. Sep 30, 2018 15:30
[2018-09-30] MEDS ORDERED: HYDR-3601 PO (15:33)
[2018-09-30] MEDS ORDERED: ACET325T33 PO (15:33)
--- NOTE | 2018-09-30 15:40 | DS ---
Date/Time of Note Date/Time of Note DATE: 09/30/18 TIME: 15:36 Discharge Summary Admission/Discharge Info Admit Date/Time Sep 29, 2018 at 15:47 Discharge Date/Time Sep 30, 2018 Discharge Diagnosis Post-appendectomy Patient Condition: Good Consults Surgery Procedures Laparoscopic appendectomy Vaginal OB ultrasound Hx of Present Illness Ms. Mathis is a 28-year-old woman, 9-weeks , who presented yesterday in the [facility] ER with abdominal pain. 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 The day before, she was seen here in the ED with emesis and right lower quadrant pain, but no vaginal bleeding, urethritis, or dysuria. CBC then showed mild leukocytosis only. OB ultrasound showed an intrauterine estimated at 8 weeks 5 days with heart rate of 159 bpm. She was discharged home and urged to follow-up yesterday. She had two episodes of emesis overnight and became febrile with low-grade temp. She has a 5-year-old daughter who was visiting this afternoon. The previous was complicated with pre-eclampsia. She had no other health issues, and was taking only a pre- vitamin before she got sick. Hospital Course She underwent MRI that showed appendicitis, and Dr. Bebeto Abraham took her to surgery last night. The patient received Zosyn IV in the ER and q6h thereafter. The operation went well, with no evidence for perforation. I spoke with the eeg tech on-call, who recommended vaginal OB ultrasound this morning. That study showed a normal 9-week with normal heart sounds. The patient had mild pain and nausea this morning, but felt much better by this afternoon. Pain was well-controlled on Tylenol alone, and she ate lunch comfortably. Home Meds Active Scripts Acetaminophen* (Tylenol*) 325 Mg Tablet, 325 MG PO Q6H PRN for MILD PAIN(1-3)OR ELEVATED TEMP, #100 TAB Prov:LOUIE PINEDO. KrissD. 09/30/18 Hydrocodone Bit-Acetaminophen (Hydrocodone Bit-APAP) 5-325MG Tablet, 1 TAB PO Q8 PRN for PAIN LEVEL 4-7 for 7 Days, #15 TAB Prov:LOUIE PINEDO. [place]. 09/30/18 Metoclopramide* (Reglan*) 10 Mg Tablet, 10 MG PO Q6 PRN for NAUSEA AND/OR VOMITING, #10 TAB Prov:MARCIAL PAINTER 09/28/18 Discontinued Scripts Hydrocodone/Acetaminophen ([place] 5-325 Tablet) 1 Each Tablet, 1-2 TAB PO Q6H PRN for PAIN, #15 TAB Prov:MARCIAL PAINTER 09/28/18 Naproxen* (Naprosyn*) 500 Mg Tablet, 500 MG PO BID PRN for PAIN AND/OR INFLAMMATION, #15 TAB Prov:MARCIAL ALEXANDER PA-C 05/04/17 Follow-up Plan Obstetrics follow-up in the next week Primary Care Provider Not On Staff Doctor Time spent on discharge: > 30 minutes Pending Labs Laboratory Tests Test 09/30/18 04:29 White Blood Count 7.1 10^3/ul (4.8-10.8) Red Blood Count 3.79 10^6/ul (4.20-5.40) Hemoglobin 11.4 g/dl (12.0-16.0) Hematocrit 33.4 % (37.0-47.0) Mean Corpuscular Volume 88.1 fl (82.0-101.0) Mean Corpuscular Hemoglobin 30.1 pg (29.0-33.0) Mean Corpuscular Hemoglobin Concent 34.1 g/dl (32.0-37.0) Red Cell Distribution Width 12.3 % (11.5-14.5) Platelet Count 219 10^3/UL (140-415) Mean Platelet Volume 10.8 fl (7.4-10.4) Immature Granulocytes % 0.400 % (0.001-0.429) Neutrophils % 82.4 % (39.0-77.0) Lymphocytes % 10.9 % (15.0-51.0) Monocytes % 5.6 % (0.0-11.0) Eosinophils % 0.1 % (0.0-7.0) Basophils % 0.6 % (0.0-2.0) Nucleated Red Blood Cells % 0.0 /100WBC (0.0-0.0) Immature Granulocytes # 0.030 10^3/ul (0.0-0.031) Neutrophils # 5.8 10^3/ul (1.6-7.5) Lymphocytes # 0.8 10^3/ul (0.8-2.9) Monocytes # 0.4 10^3/ul (0.3-0.9) Eosinophils # 0.0 10^3/ul (0.0-0.5) Basophils # 0.0 10^3/ul (0.0-0.1) Nucleated Red Blood Cells # 0.0 10^3/ul (0.0-0.0) Sodium Level 139 mmol/L (135-144) Potassium Level 3.5 mmol/L (3.5-5.1) Chloride Level 107 mmol/L (97-110) Carbon Dioxide Level 23 mmol/L (21-31) Anion Gap 9 (5-13) Blood Urea Nitrogen 4 mg/dl (7-20) Creatinine 0.44 mg/dl (0.44-1.00) Est Glomerular Filtrat Rate mL/min > 60 mL/min (>60) Glucose Level 103 mg/dl (70-220) Calcium Level 7.9 mg/dl (8.4-10.2) LOUIE PINEDO M.D. Sep 30, 2018 15:40
== END 2018-09-30 17:10 | disposition home or self-care (01) | DRG 817 ==
LOC: FTE 08:50 → REC 14:20 → SUR 14:20 → SDS 15:47 → REC 15:47 → MS1 17:12
PROVIDERS: ADMIT Internal Medicine; ATTEND Surgery
PROC: 0DTJ4ZZ Resection of Appendix, Percutaneous Endoscopic Approach (ICD-10-PCS; principal; 2018-09-29 14:00)
DX: O26.891 Other specified pregnancy related conditions, first trimester (principal); K85.90 Acute pancreatitis without necrosis or infection, unspecified; Z3A.08 8 weeks gestation of pregnancy
CPT/HCPCS: 36415; 74181; 76801; 80048; 80053; 85025; 85610; 85730; 88304; 96361; 96374; J0690; J2001; J2270; J2405; J2543; J3010; J3480; J7030

== ENCOUNTER 2018-12-22 21:33 | Outpatient (CLI) | payer OTHER ==
[~2018-12-22] VITALS: Ht 162.6 cm; Wt 62.7 kg
[~2018-12-22 21:33] MED LIST changes: +ACET325T33 PO; +FER325 PO; +FOLI0.8C PO; +HYDR-3601 PO; -HYDR-4011 PO; -NAPR-985 PO; +PREN1TAB13 PO
[2018-12-22 22:00] VITALS: BP 122/62; PULSE 88; RESP 20; Ht 162.6 cm; Wt 62.7 kg
== END 2018-12-23 00:01 | disposition home or self-care (01) ==
LOC: L-D 21:33 → OBT 21:33
PROVIDERS: ATTEND Obstetrics & Gynecology Gynecology
DX: O21.9 Vomiting of pregnancy, unspecified (principal); O34.219 Maternal care for unspecified type scar from previous cesarean delivery; O09.292 Supervision of pregnancy with other poor reproductive or obstetric history, second trimester; Z3A.20 20 weeks gestation of pregnancy
CPT/HCPCS: 76815; 76817; 80053; 81001; 85025; 87086; G0463